=== PATIENT | female | born 1960 | race Two or more races ===

== ENCOUNTER 2017-07-29 06:49 | Emergency (ER) | payer OTHER ==
[~2017-07-29] VITALS: Ht 157.5 cm; Wt 98.1 kg
[2017-07-29 08:54] VITALS: BP 151/67
== END 2017-07-29 08:57 | disposition home or self-care (01) ==
LOC: TRA 06:49
DX: S80.02XA Contusion of left knee, initial encounter (principal); M17.11 Unilateral primary osteoarthritis, right knee; V79.50XA Passenger on bus injured in collision with unspecified motor vehicles in traffic accident, initial encounter; Y92.410 Unspecified street and highway as the place of occurrence of the external cause
CPT/HCPCS: 73564; 99281; 99283